=== PATIENT | female | born 1970 ===

== ENCOUNTER 2024-03-10 03:24 | Outpatient (CLI) | payer OTHER, SELFPAY ==
[2024-03-10 11:15] LABS: Abs Immature Grans 0.02 10^3/uL (0.0-0.06); Absolute Basophil Count 0.05 10^3/uL (0.0-0.2); Absolute Eosinophil Count 0.13 10^3/uL (0.0-0.7); Absolute Lymphocyte Count 2.19 10^3/uL (1.2-3.4); Absolute Neutrophil Count 4.51 10^3/uL (1.2-6.7); Basophils % 0.7 %; Eosinophils % 1.8 %; HCT 39.9 % (36.0-46.0); HGB 13.5 g/dL (11.2-15.7); Immature Grans % 0.3 %; Lymphocytes % 29.6 %; MCH 30.2 pg (27.0-33.0); MCHC 33.8 % (32.0-36.0); MCV 89 fL (80-95); MPV 9.3 fL (8.0-11.0); Monocytes % 6.8 %; Neutrophils % 60.8 %; Platelet Count 334 10^3/uL (130-400); RBC 4.47 10^6/uL (3.93-5.22); RDW 12.1 % (11.7-14.6); RDW-SD 39.7 fL
[2024-03-10 11:25] LABS: Hemoglobin A1C 5.4 % (<5.7)
[2024-03-10 11:44] LABS: ALT 27 U/L (14-59); AST 21 U/L (15-37); Albumin 4.1 g/dL (3.4-5.0); Alkaline Phosphatase 74 U/L (46-116); Anion Gap 8.3 mmol/L (3-11); BUN 10 mg/dL (7-18); Bilirubin, Total 0.74 mg/dL (0.2-1.0); CO2 29.7 mmol/L (21.0-32.0); CREATININE 0.8 mg/dL (0.55-1.02); Calcium 9.5 mg/dL (8.5-10.1); Calculated LDL 124 mg/dL (<100); Chloride 102 mmol/L (98-107); Cholesterol 226 mg/dL (<200); Glucose 96 mg/dL (74-106); HDL Cholesterol 90 mg/dL (40-60); Potassium 3.7 mmol/L (3.5-5.1); Sodium 140 mmol/L (136-145); Total Protein 7.8 g/dL (6.4-8.2); Triglyceride 61 mg/dL (<150)
== END 2024-03-10 03:25 | disposition home or self-care (01) ==
LOC: LBO 03:24
PROVIDERS: Visit Provider Physician Assistant
DX: Z00.00 Encounter for general adult medical examination without abnormal findings (principal); Z13.1 Encounter for screening for diabetes mellitus; Z13.220 Encounter for screening for lipoid disorders
CPT/HCPCS: 36415; 80053; 80061; 83036; 85025

== ENCOUNTER 2024-03-12 01:56 | Outpatient (CLI) | payer OTHER, SELFPAY ==
--- NOTE | 2024-03-12 | DI.MAMMO_ITS ---
Exam(s) MAMMO SCREENING EXAM: MAMMO SCREENING CLINICAL HISTORY: Z12.31 Screening. TECHNIQUE: Bilateral full field digital CC and MLO mammographic images were obtained with 3D tomosyn thesis and utilizing computer aided detection (CAD). COMPARISON: This is a baseline mammogram on this 53-year-old FINDINGS: No significant focal left breast findings. The right breast towards the upper outer quadrant there is a benign-appearing nodule which has appear ance of benign intramammary lymph node, located 6 cm in from the nipple There are no spiculated masses nor malignant appearing microcalcification groups. There is no significant architectural distortion nor skin thickening-retraction. IMPRESSION: Benign findings. No radiographic evidence of malignancy. BI-RADS Category 2 - Benign Findings Breast Density - Category B - Scattered areas of fibroglandular density Breast density Category C or D implies that the patient has dense breast tissue. Dense breast tissue can make it harder to find cancer on a mammogram. Dense breast tissue is also associated with an incr eased risk of breast cancer. This information about the result of the mammogram report was provided to the patient to raise their awareness. Use this report when you speak with the patient about their risks for breast cancer, which includes their family history. At that time, you may recommend additional screening tests (Ultrasoun d or MRI) as these tests may add significant information. A negative radiographic report should not delay biopsy if a dominant or clinically suspicious mass is present. Up to ten percent of cancers are not identified on mammography. A negative report may reinforce clinical impression. Adenosis and dense breasts may obscure an underlying neoplasm. False positive reports average 6 to 10%. Patient will receive a letter notifying them of these results.
== END 2024-03-12 02:16 ==
LOC: DI 01:56
PROVIDERS: Visit Provider Physician Assistant
DX: Z12.31 Encounter for screening mammogram for malignant neoplasm of breast (principal)
CPT/HCPCS: 77063; 77067

== ENCOUNTER 2024-05-28 16:13 | Outpatient (REF) | payer OTHER, SELFPAY ==
--- NOTE | 2024-05-28 11:15 | PAPFT_PTH ---
PATIENT: Magi Hernández LOC: [facility] U#:[id number] AGE/SX: 53/F ROOM: RE05/28/[address]: Akhil Villanueva : 1970 BED: DIS: 05/28/2024 SPEC #: [id number] RECD: 05/28/24 17:05 STATUS: MANOLO REQ #: [id number] FELIX: 05/28/24 11:[address]: Akhil Villanueva DEPT: [facility] Cytology RECD BY: Tanja Glover Tissues: 1 - CX/ENDOCX FOR PAP SMEARS Procedures: PAP THIN PREP/[facility] Screening HPV DNA PROBE Comments: [id number] (HPV 16 & 18/45)
== END 2024-05-28 16:14 | disposition home or self-care (01) ==
LOC: LBN 16:13
PROVIDERS: PCP Physician Assistant; Visit Provider Physician Assistant
DX: Z12.4 Encounter for screening for malignant neoplasm of cervix (principal)
CPT/HCPCS: 88142; 87624